=== PATIENT | male | born 1990 | race Caucasian/White ===

== ENCOUNTER 2021-09-11 16:34 | Emergency (ER) | payer SELFPAY ==
[~2021-09-11] VITALS: Ht 172.7 cm; Wt 75.0 kg
[2021-09-11 16:35] VITALS: BP 128/108
== END 2021-09-11 23:16 | disposition left against medical advice (07) ==
LOC: ER 16:34
DX: Z53.21 Procedure and treatment not carried out due to patient leaving prior to being seen by health care provider (principal)

== ENCOUNTER 2022-05-21 16:17 | Emergency (ER) | payer MEDICAID, OTHER ==
[~2022-05-21] VITALS: Ht 167.6 cm; Wt 65.0 kg
[2022-05-21] MEDS ORDERED: DIPHENHYDRAMINE 50MG/ML VIAL IM STA (17:10)
[2022-05-21] MEDS ORDERED: HALOPERIDOL LACTATE 5MG/ML VIAL IM STA (17:10)
[2022-05-21] MEDS ORDERED: LORAZEPAM 2MG/ML CPJ IM STA (17:10)
[2022-05-21 17:59] LABS: CLARITY URINE CLEAR (CLEAR); COLOR URINE YELLOW (YELLOW); KETONES URINE NEGATIVE (NEGATIVE); LEUKOCYTE ESTERASE URINE NEGATIVE (NEGATIVE); NITRITE URINE NEGATIVE (NEGATIVE); OCCULT BLOOD URINE NEGATIVE (NEGATIVE); PROTEIN URINE NEGATIVE (NEGATIVE); SPECIFIC GRAVITY URINE 1.004 (1.005-1.030); UROBILINOGEN URINE 0.2 E.U./dL (0.2-1.0)
[2022-05-21 18:35] LABS: *AMPHETAMINES SCREEN URINE NEGATIVE (NEGATIVE); *BARBITURATES SCREEN URINE NEGATIVE (NEGATIVE); *BENZODIAZEPINES SCREEN URINE NEGATIVE (NEGATIVE); *COCAINE SCREEN URINE NEGATIVE (NEGATIVE); CANNABINOID URINE SCREEN NEGATIVE (NEGATIVE); METHADONE URINE SCREEN NEGATIVE (NEGATIVE); OPIATES URINE SCREEN NEGATIVE (NEGATIVE); PHENCYCLIDINE URINE SCREEN NEGATIVE (NEGATIVE)
[2022-05-21 19:03] LABS: BASOPHILS % 0.3 % (0.0-2.0); EOSINOPHILS % 0.4 % (0.0-5.0); HEMOGLOBIN. 16.2 g/dL (14.0-18.0); LYMPHOCYTES % 28.6 % (20.0-50.0); MEAN CORPUSCULAR HEMOGLOBIN 31.6 pg (28.0-32.0); MEAN CORPUSCULAR VOLUME 91.8 fL (80.0-94.0); MEAN PLATELET VOLUME 7.6 fl (7.4-10.4); MONOCYTES % 4.7 % (2.0-8.0); PLATELET 258 x1000/uL (130-400); RED BLOOD CELL COUNT 5.12 mill/uL (4.7-6.1); RED CELL DISTRIBUTION WIDTH 13.5 % (11.6-14.6)
[2022-05-21 19:16] LABS: CHLORIDE 109 mEq/L (98-107)
[2022-05-21 19:32] LABS: ETHANOL BLOOD 73 mg/dL
[2022-05-22] MEDS ORDERED: DIVALPROEX SODIUM 250MG DR TABLET PO SCH (12:30)
[2022-05-22] MEDS ORDERED: OLANZAPINE 5MG TABLET PO SCH (12:30)
[2022-05-22 18:33] VITALS: BP 128/74
== END 2022-05-22 18:42 ==
LOC: ER 16:17
DX: R45.851 Suicidal ideations (principal); F31.9 Bipolar disorder, unspecified; F20.9 Schizophrenia, unspecified; Z20.822 Contact with and (suspected) exposure to COVID-19
CPT/HCPCS: 36415; 80053; 80305; 80307; 80320; 80329; 81003; 84443; 85025; 87426; 96372; 99291; C9803; J1200; J1630; J2060; Z7610; G0480

== ENCOUNTER 2023-10-01 16:44 | Emergency (ER) | payer MEDICAID, OTHER ==
[~2023-10-01] VITALS: Ht 172.7 cm; Wt 55.8 kg
[2023-10-01 17:24] VITALS: BP 115/75; PULSE 81; RESP 16; TEMP 97.8; O2SAT 96
== END 2023-10-01 19:03 | disposition home or self-care (01) ==
LOC: ER 16:44
DX: R07.89 Other chest pain (principal); F31.9 Bipolar disorder, unspecified; F20.9 Schizophrenia, unspecified
CPT/HCPCS: 71045; 93005; 99283

== ENCOUNTER 2025-01-18 12:16 | Emergency (ER) | payer MEDICAID ==
[~2025-01-18] VITALS: Ht 175.3 cm; Wt 81.0 kg
[2025-01-18 12:27] VITALS: BP 146/90; TEMP 36.7; O2SAT 98
[2025-01-18 12:45] VITALS: PULSE 96; RESP 18; O2SAT 99
== END 2025-01-18 14:34 | disposition left against medical advice (07) ==
LOC: ER 12:16
DX: H57.12 Ocular pain, left eye (principal)
CPT/HCPCS: 99281